=== PATIENT | male | born 1985 | race American Indian/Alaskan Native ===

== ENCOUNTER 2020-01-17 12:51 | Emergency (ER) | payer OTHER ==
[2020-01-17] MEDS ORDERED: HYDROmorphone 1 MG/1 ML INJ IV ONE ×2 (15:10→16:26)
[2020-01-17] MEDS ORDERED: SODIUM CHLORIDE 0.9% 1000 ML 1,000 ML IV ONE (15:11)
[2020-01-17 15:32] LABS: Hematocrit 50.4 % (35.5-45.6); Hemoglobin 16.5 gm/dl (11.8-15.2); Mean Corpuscular HGB Conc 33 % (32-34); Mean Corpuscular Volume 93 fl (84-94); Platelet Count 187 K/mm3 (140-440); Red Blood Count 5.41 M/mm3 (3.65-5.03); Red Cell Distribution Width 13.4 % (13.2-15.2)
--- NOTE | 2020-01-17 15:44 | Emergency Department Report ---
<LOGAN MCBRIDE - Last Filed: 01/17/20 16:00> ED Seizure HPI - General Chief Complaint: Seizure Stated Complaint: LT ARM PAIN Time Seen by Provider: 01/17/20 14:59 Source: patient, EMS Mode of arrival: Ambulatory Limitations: No Limitations - History of Present Illness Initial Comments: Patient is a 34-year-old male who presents emergency room with complaints of new onset seizure that occurred just prior to arrival. Patient states that he started a digestive cleanse yesterday. He states that today he was playing [employer] video game and then he states that his friend told him that he heard that he fell to the ground and believed to began having seizure-like activity. The patient states that he had LOC and when he woke up EMS had arrived. He is not sure how long he was out for. He is complaining of left shoulder pain, left upper arm pain, bite to his tongue. He has never had seizures before. He denies any headache, vision changes, numbness, weakness, any other injury. He denies any neck pain or back pain. He denies any past medical history. He states he has an allergy to penicillin. He endorses marijuana use. He states that he does drink alcohol approximately 2-3 times a week. He denies any other drug use. - Related Data Previous Rx's Medication Instructions Recorded Last Taken Type Ketorolac [Toradol] 10 mg PO Q6H PRN #12 tablet 01/17/20 Unknown Rx levETIRAcetam [Keppra TAB] 500 mg PO BID #30 tablet 01/17/20 Unknown Rx methOCARBAMOL [Robaxin TAB] 500 mg PO Q6H PRN #14 tablet 01/17/20 Unknown Rx Allergies Allergy/AdvReac Type Severity Reaction Status Date / Time No Known Allergies Allergy Unverified 01/17/20 12:53 ED Review of Systems Comment: All other systems reviewed and negative ED Past Medical Hx - Past Medical History Previous Medical History?: No - Surgical History Past Surgical History?: No - Medications Home Medications: Home Medications Medication Instructions Recorded Confirmed Last Taken Type Ketorolac [Toradol] 10 mg PO Q6H PRN #12 tablet 01/17/20 Unknown Rx levETIRAcetam [Keppra TAB] 500 mg PO BID #30 tablet 01/17/20 Unknown Rx methOCARBAMOL [Robaxin TAB] 500 mg PO Q6H PRN #14 tablet 01/17/20 Unknown Rx ED Physical Exam - General Limitations: No Limitations General appearance: alert, in no apparent distress - Head Head exam: Present: atraumatic, normocephalic - Eye Eye exam: Present: normal appearance, PERRL, EOMI - ENT ENT exam: Present: mucous membranes moist, other (abrasion to the left tongue, no laceration) - Neck Neck exam: Present: normal inspection, full ROM. Absent: tenderness - Respiratory Respiratory exam: Present: normal lung sounds bilaterally. Absent: respiratory distress, wheezes, rales, rhonchi, stridor, chest wall tenderness, accessory muscle use, decreased breath sounds, prolonged expiratory - Cardiovascular Cardiovascular Exam: Present: regular rate, normal rhythm, normal heart sounds. Absent: systolic murmur, diastolic murmur, rubs, gallop - Extremities Exam Extremities exam: Present: other (obvious deformity present to the left shoulder concern for dislocation, neurovascularly intact) - Back Exam Back exam: Present: normal inspection, full ROM. Absent: paraspinal tenderness, vertebral tenderness - Neurological Exam Neurological exam: Present: alert, oriented X3, CN II-XII intact, normal gait. Absent: motor sensory deficit - Psychiatric Psychiatric exam: Present: normal affect, normal mood - Skin Skin exam: Present: warm, dry ED Medical Decision Making - Lab Data Result diagrams: 01/17/20 15:15 01/17/20 15:15 ED Disposition Clinical Impression: New onset seizure Anterior shoulder dislocation Qualifiers: Encounter type: initial encounter Laterality: left Qualified Code(s): S43.015A - Anterior dislocation of left humerus, initial encounter Disposition: TO HOME OR SELFCARE Condition: Stable Instructions: New-Onset Seizure in Adults (ED), Shoulder Dislocation (ED), RICE Therapy (ED) Referrals: PASTOR GREGORY MD [Staff Physician] - 3-5 Days JAMEE LARSON MD [Staff Physician] - 3-5 Days <KVNG BILLINGSLEY - Last Filed: 01/17/20 17:12> ED Review of Systems ROS: Stated complaint: LT ARM PAIN Other details as noted in HPI - Orthopedic Joint Reduction Joint #1 Consent Obtained: verbal consent Time Out Performed: Yes Side: left Joint Reduction Location: shoulder Analgesia: other (joint infusion) Local Anesthetic Used: Lidocaine 2% Amount of Anesthetic Used (mls): 10 Shoulder Technique Used (if applicable): Milch Post-Reduction Neuro Exam: intact Post-Reduction Vascular Exam: intact Post Reduction X-Ray Obtained: No ED Medical Decision Making - Lab Data Result diagrams: 01/17/20 15:15 01/17/20 15:15 Lab Results 01/17/20 01/17/20 Range/Units 15:15 15:15 WBC 19.0 H (4.5-11.0) K/mm3 RBC 5.41 H (3.65-5.03) M/mm3 Hgb 16.5 H (11.8-15.2) gm/dl Hct 50.4 H (35.5-45.6) % MCV 93 (84-94) fl MCH 30 (28-32) pg MCHC 33 (32-34) % RDW 13.4 (13.2-15.2) % Plt Count 187 (140-440) K/mm3 Add Manual Diff Complete Total Counted 100 Seg Neutrophils % Marketing Researcher Seg Neuts % (Manual) 87.0 H (40.0-70.0) % Band Neutrophils % 0 % Lymphocytes % (Manual) 8.0 L (13.4-35.0) % Reactive Lymphs % (Man) 0 % Monocytes % (Manual) 5.0 (0.0-7.3) % Eosinophils % (Manual) 0 (0.0-4.3) % Basophils % (Manual) 0 (0.0-1.8) % Metamyelocytes % 0 % Myelocytes % 0 % Promyelocytes % 0 % Blast Cells % 0 % Nucleated RBC % Not Reportable Seg Neutrophils # Man 16.5 H (1.8-7.7) K/mm3 Band Neutrophils # 0.0 K/mm3 Lymphocytes # (Manual) 1.5 (1.2-5.4) K/mm3 Abs React Lymphs (Man) 0.0 K/mm3 Monocytes # (Manual) 1.0 H (0.0-0.8) K/mm3 Eosinophils # (Manual) 0.0 (0.0-0.4) K/mm3 Basophils # (Manual) 0.0 (0.0-0.1) K/mm3 Metamyelocytes # 0.0 K/mm3 Myelocytes # 0.0 K/mm3 Promyelocytes # 0.0 K/mm3 Blast Cells # 0.0 K/mm3 WBC Morphology Not Reportable Hypersegmented Neuts Not Reportable Hyposegmented Neuts Not Reportable Hypogranular Neuts Not Reportable Smudge Cells Not Reportable Toxic Granulation Not Reportable Toxic Vacuolation Not Reportable Dohle Bodies Not Reportable Pelger-Huet Anomaly Not Reportable Fernando Rods Not Reportable Platelet Estimate Consistent w auto Clumped Platelets Not Reportable Plt Clumps, EDTA Not Reportable Large Platelets Not Reportable Giant Platelets Not Reportable Platelet Satelliting Not Reportable Plt Morphology Comment Not Reportable RBC Morphology Normal Dimorphic RBCs Not Reportable Polychromasia Not Reportable Hypochromasia Not Reportable Poikilocytosis Not Reportable Anisocytosis Not Reportable Microcytosis Not Reportable Macrocytosis Not Reportable Spherocytes Not Reportable Pappenheimer Bodies Not Reportable Sickle Cells Not Reportable Target Cells Not Reportable Tear Drop Cells Not Reportable Ovalocytes Not Reportable Helmet Cells Not Reportable Bang-Adwolf Bodies Not Reportable [place] Rings Not Reportable [place] Cells Not Reportable Bite Cells Not Reportable Crenated Cell Not Reportable Elliptocytes Not Reportable Acanthocytes (Spur) Not Reportable Rouleaux Not Reportable Hemoglobin C Crystals Not Reportable Schistocytes Not Reportable Malaria parasites Not Reportable Herber Bodies Not Reportable Hem Pathologist Commnt No Sodium 139 (137-145) mmol/L Potassium 3.7 (3.6-5.0) mmol/L Chloride 99.6 (98-107) mmol/L Carbon Dioxide 23 (22-30) mmol/L Anion Gap 20 mmol/L BUN 15 (9-20) mg/dL Creatinine 0.9 (0.8-1.5) mg/dL Estimated GFR > 60 ml/min BUN/Creatinine Ratio 17 % Glucose 102 H (75-100) mg/dL Calcium 9.7 (8.4-10.2) mg/dL Magnesium 2.00 (1.7-2.3) mg/dL Total Bilirubin 0.60 (0.1-1.2) mg/dL AST 28 (5-40) units/L ALT 25 (7-56) units/L Alkaline Phosphatase 89 (35-129) units/L Total Creatine Kinase 338 H (55-170) units/L Total Protein 8.6 H (6.3-8.2) g/dL Albumin 4.8 (3.9-5) g/dL Albumin/Globulin Ratio 1.3 % - Radiology Data [facility] [address] [place] [address] XRay Report Signed Patient: GODWIN VILLALOBOS MR#: [id number] : 1985 Acct:[id number] Age/Sex: 34 / M ADM Date: 01/17/20 Loc: ED Attending Dr: Ordering Physician: ARCADIO CAMPOS Date of Service: 01/17/20 Procedure(s): XR shoulder 2+V LT Accession Number(s): [id number] cc: ARCADIO CAMPOS Fluoro Time In Minutes: XR shoulder 2+V LT INDICATION / CLINICAL INFORMATION: seizure, deformity left shoulder. COMPARISON: None available. FINDINGS: There is an anterior glenohumeral joint dislocation, without appreciable fracture on the current study. Signer Name: Aravind العيل MD Signed: 01/17/2020 3:58 PM Workstation Name: [id number] - Medical Decision Making Patient is a 34-year-old F [place] male who was playing a video game and had a new onset seizure. Patient is is returned completely back to his baseline. He denies any illicit drug use except for occasional marijuana. States he is on no new medications except for a 1week: Cleanse regimen that he got [id number]. He is on day 2 but is not had any diarrhea as of yet. Patient's laboratory studies are unremarkable. Patient be referred to neurology as an outpatient. Regarding the patient's shoulder this was reduced using the Milch technique. There was no complications he tolerated procedure well. Patient be discharged with follow-up with orthopedics. Critical care attestation.: If time is entered above; I have spent that time in minutes in the direct care of this critically ill patient, excluding procedure time. ED Disposition Is pt being admited?: No Does the pt Need Aspirin: No Time of Disposition: 17:11
[2020-01-17 15:51] LABS: Alanine Aminotransferase 25 units/L (7-56); Albumin 4.8 g/dL (3.9-5); BUN/Creatinine Ratio 17; Blood Urea Nitrogen 15 mg/dL (9-20); Calcium 9.7 mg/dL (8.4-10.2); Hemolysis Index 25
--- NOTE | 2020-01-17 16:03 | XRay Report ---
XR humerus 1V LT INDICATION: seizure, deformity left shoulder. COMPARISON: None available. FINDINGS: There is an anterior glenohumeral joint dislocation in left shoulder. Signer Name: Aravind العلي MD Signed: 01/17/2020 3:58 PM Workstation Name: [id number]
--- NOTE | 2020-01-17 16:03 | XRay Report ---
XR shoulder 2+V LT INDICATION / CLINICAL INFORMATION: seizure, deformity left shoulder. COMPARISON: None available. FINDINGS: There is an anterior glenohumeral joint dislocation, without appreciable fracture on the current stud y. Signer Name: Aravind العلي MD Signed: 01/17/2020 3:58 PM Workstation Name: [id number]
[2020-01-17] MEDS ORDERED: KETOROLAC 30 MG/1 ML INJ IV ONE (16:26)
[2020-01-17] MEDS ORDERED: LIDOCAINE (2%) 20 MG/1 ML VIAL 20 ML MDV INFILTRATI ONE (16:26)
[2020-01-17] MEDS ORDERED: levETIRAcetam 1000 MG/NS 0.75% 1,000 MG/100 ML BAG IV ONE (16:26)
[2020-01-17 16:28] LABS: Basophils % (Manual) 0 % (0.0-1.8); Eosinophils % (Manual) 0 % (0.0-4.3); Platelet Estimate Consistent w Auto; RBC Morphology Normal; Total Cells Counted 100
[2020-01-17] MEDS ORDERED: LIDOCAINE 2%/EPINEPHRINE 1:100,000 VIAL (20 ML) INFILTRATI ONE (16:29)
[2020-01-17 17:35] VITALS: BP 143/90
== END 2020-01-17 17:35 | disposition home or self-care (01) ==
LOC: ED 12:51
DX: S43.015A Anterior dislocation of left humerus, initial encounter (principal); Z79.899 Other long term (current) drug therapy; W19.XXXA Unspecified fall, initial encounter; Y93.89 Activity, other specified; Y92.89 Other specified places as the place of occurrence of the external cause; Y99.8 Other external cause status; R56.9 Unspecified convulsions
CPT/HCPCS: 23655; 36415; 73030; 73060; 80053; 82550; 83735; 85007; 85025; 96365; 96375; 96376; 99284; J1170; J1885; J1953; J7030